=== PATIENT | male | born 1970 | race Caucasian/White ===

== ENCOUNTER → 2021-12-08 | Outpatient (CLI) | payer OTHER | LOC: RAD 13:43 | DX: M25.512 Pain in left shoulder (principal) | CPT/HCPCS: 73030 ==

== ENCOUNTER 2022-01-04 18:12 | Emergency (ER) | payer OTHER ==
[2022-01-04 18:43] LABS: HEMOGLOBIN 16.1 gm/dl (14.0-17.5); RED BLOOD COUNT 5.16 M/UL (4.20-5.50); WHITE BLOOD COUNT 8.9 K/UL (4.5-11.0)
[2022-01-04 19:13] LABS: BUN/CREATININE RATIO 12 (0-10)
[2022-01-05] MEDS ORDERED: ASPIRIN CHEWABL81 MG PO (00:26)
== END 2022-01-05 00:40 | disposition home or self-care (01) ==
LOC: ER1 18:12
PROVIDERS: Emergency Medicine
DX: R07.9 Chest pain, unspecified (principal); I10 Essential (primary) hypertension
CPT/HCPCS: 71045; 80053; 82550; 82553; 84484; 85025; 93005; 99285

== ENCOUNTER → 2022-02-09 | Outpatient (CLI) | payer OTHER ==
[~2022-02-09] MED LIST: ASPIRIN CHEWABL81 MG PO
== END ==
LOC: HEART 5 01-31 13:30
DX: R07.9 Chest pain, unspecified (principal); I51.7 Cardiomegaly; I34.0 Nonrheumatic mitral (valve) insufficiency
CPT/HCPCS: 93306